=== PATIENT | female | born 1965 | race Caucasian/White ===

== ENCOUNTER → 2018-09-16 | Outpatient (CLI) | payer BC ==
[2018-09-16 04:13] LABS: HEMATOCRIT 35.2 % (36.0-47.0); HEMOGLOBIN 11.5 g/dL (12.0-15.5); MEAN CORPUSCULAR HEMOGLOBIN 25.7 pg (27.0-33.4); MEAN CORPUSCULAR HGB CONC 32.7 g/dL (32.0-36.0); MEAN CORPUSCULAR VOLUME 79 fl (80-97); PLATELET COUNT 418 10^3/uL (150-450); RED BLOOD COUNT 4.48 10^6/uL (3.72-5.28); WHITE BLOOD COUNT 7.5 10^3/uL (4.0-10.5)
[2018-09-16 04:36] LABS: ALANINE AMINOTRANSFERASE 21 U/L (9-52); ALBUMIN 4.2 g/dL (3.5-5.0); ALKALINE PHOSPHATASE 132 U/L (38-126); ANION GAP 11 (5-19); ASPARTATE AMINO TRANSFERASE 23 U/L (14-36); BILIRUBIN,DIRECT 0.2 mg/dL (0.0-0.4); BILIRUBIN,TOTAL 0.3 mg/dL (0.2-1.3); BLOOD UREA NITROGEN 12 mg/dL (7-20); CALCIUM 9.5 mg/dL (8.4-10.2); CARBON DIOXIDE 30 mmol/L (22-30); CHLORIDE 103 mmol/L (98-107); GLUCOSE 86 mg/dL (75-110); POTASSIUM 4.1 mmol/L (3.6-5.0); SODIUM 143.7 mmol/L (137-145); TOTAL PROTEIN 7.2 g/dL (6.3-8.2)
[2018-09-16 05:11] LABS: FERRITIN 4.98 ng/mL (11.1-264.0)
== END ==
LOC: LAB 04:00
PROVIDERS: ATTEND Internal Medicine
DX: E55.9 Vitamin D deficiency, unspecified (principal); E03.9 Hypothyroidism, unspecified; Z98.84 Bariatric surgery status
CPT/HCPCS: 36415; 80053; 82306; 82607; 82728; 83036; 84436; 84443; 85027

== ENCOUNTER → 2019-04-10 | Outpatient (CLI) | payer BC ==
--- NOTE | 2019-04-10 21:32 | RADIOLOGY REPORT (SQ) ---
EXAM DESCRIPTION: [facility]: CT ABDOMEN PELVIS WITH IV CONTRAST CLINICAL HISTORY: 54 years Female; R10.31 RIGHT LOWER QUADRANT PAIN TECHNIQUE: CT of the abdomen and pelvis using intravenous contrast. All CT scans at this facility use dose modulation, iterative reconstruction, and/or weight based dosing when appropriate to reduce radiation dose to as low as reasonably achievable. COMPARISON: None. FINDINGS: Abdomen: Gastric staple lines are noted. No adjacent edema. Liver: The lateral margin of segment 6, there is a 1.6 x 1.2 x 1.3 cm hyperenhancing lesion. No additional liver lesions. No ductal distention. Gallbladder:Nondistended Pancreas:Within normal limits Spleen:Within normal limits Right kidney:No hydronephrosis. No focal lesion. Left kidney:No hydronephrosis. No focal lesion. Adrenal glands:Within normal limits Vascular structures:Within normal limits Pelvis: Small bowel:No significant distention. Appendix:Within normal limits Colon: Nondistended. No adjacent edema. Oral contrast is seen into the transverse colon. No evidence for obstruction. No free intraperitoneal fluid or air. Bones: Diffuse sclerotic changes in the medial left ilium are noted, without bone expansion or periosteal reaction. No additional bone lesions. Bladder: Unremarkable. Uterus and ovaries are unremarkable. No pelvic adenopathy. In the subcutaneous soft tissues posterior to the right gluteal region, there is mild edema and a punctate focus of air. IMPRESSION: 1. No acute inflammatory changes. 2. No bowel obstruction or perforation. 3. Indeterminate hyperenhancing lesion in the lateral margin of the hepatic segment 6. If there is no previous imaging for comparison, consider MRI liver with and without contrast for definitive characterization, especially if there is clinical concern for malignancy. 4. Diffuse sclerosis in the medial left ilium. 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 Again, comparison to previous exams would be helpful. 5. Right gluteal subcutaneous edema with punctate focus of air, typical for recent injection. Please correlate with recent procedural history, since focal cellulitis can have similar appearance.
== END ==
LOC: RAD 17:47
PROVIDERS: ATTEND Nurse Practitioner Family
DX: R10.31 Right lower quadrant pain (principal)
CPT/HCPCS: 74177; 82565

== ENCOUNTER → 2019-04-23 | Outpatient (CLI) | payer BC ==
--- NOTE | 2019-04-23 15:37 | RADIOLOGY REPORT (SQ) ---
EXAM DESCRIPTION: MRI ABDOMEN COMBO COMPLETED DATE/TIME: 04/23/2019 9:59 am REASON FOR STUDY: ABN FINDINGS ON DIAGNOSTIC IMAGING OF LIVER R93.2 ABNORMAL FINDINGS ON DX IMAGING OF LIVER AND BILIARY T COMPARISON: CT abdomen pelvis 04/10/2019 TECHNIQUE: Multiplanar multisequence imaging performed without and with contrast including sagittal, axial and coronal T2, axial T1, axial gradient fat sat T1, axial, sagittal and coronal fat sat T1 po st contrast. CONTRAST TYPE AND DOSE: 20 mL Dotarem. RENAL FUNCTION: Not indicated. ACR Type II contrast agent associated with few, if any, unconfounded cases of NSF LIMITATIONS: None. 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 There is no abnormal liver parenchymal mass worrisome for mal ignancy. Remainder of the liver is otherwise unremarkable. No biliary ductal dilatation. No abnormal masses or enhancement. SPLEEN: Normal size. No focal lesions. PANCREAS: No masses. No adjacent inflammation or peripancreatic fluid collections. Pancreatic duct no t dilated. GALLBLADDER: Multiple stones are present in the gallbladder. No gallbladder wall thickening or peric holecystic fluid. ADRENAL GLANDS: No significant masses or asymmetry. RIGHT KIDNEY AND URETER: No masses. No hydronephrosis. LEFT KIDNEY AND URETER: No masses. No hydronephrosis. AORTA AND VESSELS: No aneurysm. No dissection. Renal arteries, SMA, celiac without stenosis. RETROPERITONEUM: No retroperitoneal adenopathy, hemorrhage or masses. BOWEL: Not well seen ABDOMINAL WALL AND PERITONEUM: No hernias. No free fluid. BONES: No acute or significant findings. OTHER: No other significant finding. IMPRESSION: The lesion in question described on CT abdomen and pelvis 04/10/2019 represents a a dilat ed low flow aberrant vessel, along the periphery of the right lobe liver, with flow between the antonia l system and right hepatic vein. There is no abnormal liver parenchymal mass worrisome for malignanc y. TECHNICAL DOCUMENTATION: JOB ID: [id number] [employer]- All Rights Reserved Reading location - IP/workstation name: [email or web address]
== END ==
LOC: RAD 08:23
PROVIDERS: ATTEND Nurse Practitioner Family
DX: R93.2 Abnormal findings on diagnostic imaging of liver and biliary tract (principal)
CPT/HCPCS: 74183; A9576

== ENCOUNTER → 2020-10-08 | Outpatient (CLI) | payer BC ==
[~2020-10-08] MED LIST: COVID-19 VACCINE (PFIZER)/PF 30 MCG/0.3 ML VIAL IM ONE; EPINEPHRINE INJ/PF 1 MG/1 ML AMPULE IM PRN
== END ==
LOC: EMPHEALTH 08:06
PROVIDERS: ATTEND Internal Medicine
DX: Z23 Encounter for immunization (principal)
CPT/HCPCS: 91300

== ENCOUNTER → 2020-10-29 | Outpatient (CLI) | payer BC | LOC: EMPHEALTH 07:18 | PROVIDERS: ATTEND Internal Medicine | DX: Z23 Encounter for immunization (principal) | CPT/HCPCS: 91300 ==